=== PATIENT | female | born 1990 | race Two or more races ===

== ENCOUNTER 2025-10-02 12:21 | Emergency (ER) | payer MEDICAID, OTHER ==
[~2025-10-02] VITALS: Ht 172.7 cm; Wt 82.8 kg
[2025-10-02] MEDS: ONDANSETRON ODT 4 MG TAB PO ONE (13:39)
[2025-10-02] MEDS: KETOROLAC TROMETH 30 MG/ML 1ML VIAL IM ONE (13:41)
[2025-10-02] MEDS: HYDROcodone-ACET 5/325MG TAB PO ONE (13:41)
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
[2025-10-02] MEDS ORDERED: IBUP-1455 PO (14:19)
[2025-10-02] MEDS ORDERED: METH-1181 PO (14:19)
[2025-10-02 14:42] VITALS: BP 134/78; PULSE 78; RESP 16; TEMP 98.7; O2SAT 97
== END 2025-10-02 14:44 | disposition home or self-care (01) ==
LOC: ER 12:21
DX: M54.50 Low back pain, unspecified (principal); M54.2 Cervicalgia; R51.9 Headache, unspecified; V89.2XXA Person injured in unspecified motor-vehicle accident, traffic, initial encounter; Y93.89 Activity, other specified; Y92.410 Unspecified street and highway as the place of occurrence of the external cause; Y99.8 Other external cause status
CPT/HCPCS: 72100; 99283; Q0162; J1885